=== PATIENT | female | born 1995 | race African-American/Black ===

== ENCOUNTER 2017-01-09 12:19 | Emergency (ER) | payer OTHER ==
[~2017-01-09] VITALS: Ht 157.5 cm; Wt 65.2 kg
[~2017-01-09 12:19] MED LIST: KCL10C PO; METO10 PO; PHEN12.5 PO; PROM25SU8 PO; ZOFR4TAB3 PO
[2017-01-09 12:29] VITALS: BP 126/84; PULSE 124; RESP 20; TEMP 98.3; O2SAT 98
--- NOTE | 2017-01-09 13:08 | PD ---
HPI Chief Complaint: Related Problem Time Seen by Provider: 12:57 Travel History International Travel<30 days: No Contact w/Intl Traveler<30days: No Traveled to known affect area: No History of Present Illness HPI 21-year-old female , LMP 11/13/16, here for evaluation of nausea, vomiting, diarrhea, and abdominal pain. Patient reports having nausea and vomiting for 1 week. She also has been having diarrhea which she describes as loose and watery for the last several days. She has had about 1-2 episodes of vomiting once 2 episodes of loose diarrhea per day. She states that when she has a bowel movement she has lower abdominal cramping. Currently she denies any abdominal pain. No vaginal bleeding or discharge. No urinary symptoms. No history of abdominal surgeries. Patient had similar symptoms about one year ago and was diagnosed with a spontaneous for which she had a D&C. She has not seen an home energy consultant supervisor for this yet, and has not yet had an ultrasound to confirm an IUP. PFSH Past Medical History Anxiety: Yes Cancer: No Cardiovascular Problems: No Developmental Delay: No Diabetes: No Diminished Hearing: No Endocrine: No Gastrointestinal Disorders: No Genitourinary: No Hepatitis: No Hiatal Hernia: No Hypertension: No Immune Disorder: No Medical other: Yes (PT WAS 12 WEEKS AND HAD N/V, NO BLEEDING. MISSED ) Musculoskeletal: No Neurologic: No Psychiatric: No Reproductive: No Respiratory: No Immunizations Current: Yes Thyroid Disease: No Tetanus Vaccination: < 5 Years ?: LMP: 11/13/16 : 2 Para: 1 Dilation and Curettage (D&C): Yes Past Surgical History Body Medical Devices: N/A Joint Replacement: No Other Surgery: No Social History Alcohol Use: No Tobacco Use: No Substance Use: No Allergies-Medications (Allergen,Severity, Reaction): Coded Allergies: Bactrim (Unverified Allergy, Severe, Rash, 01/09/17) Uncoded Allergies: Frozen Fish (Allergy, Severe, Rash, 02/25/14) Fresh Fish is OK Reported Meds & Prescriptions Reported Meds & Active Scripts Active No Active Prescriptions or Reported Medications Review of Systems Except as stated in HPI: all other systems reviewed are Neg Physical Exam Narrative GENERAL: Well-developed, well-nourished, comfortable, no acute distress. SKIN: Focused skin assessment warm/dry. HEAD: Atraumatic. Normocephalic. EYES: Pupils equal and round. No scleral icterus. No injection or drainage. ENT: Mucous membranes pink and moist. CARDIOVASCULAR: Regular rate and rhythm. RESPIRATORY: No accessory muscle use. Clear to auscultation. Breath sounds equal bilaterally. GASTROINTESTINAL: Abdomen soft, non-tender, nondistended. MUSCULOSKELETAL: No obvious deformities. No clubbing. No cyanosis. No edema. NEUROLOGICAL: Awake and alert. No obvious cranial nerve deficits. Motor grossly within normal limits. Normal speech. PSYCHIATRIC: Appropriate mood and affect; insight and judgment normal. Data Data Last Documented VS Vital Signs Date Time Temp Pulse Resp B/P Pulse Ox O2 Delivery O2 Flow Rate FiO2 01/09/17 12:29 98.3 124 20 126/84 98 Orders Urinalysis - C+S If Indicated (01/09/17 12:33) Ed Urine Pregnancytest Poc (01/09/17 12:57) Beta Hcg (Quant/Titer) (01/09/17 13:05) Complete Blood Count With Diff (01/09/17 13:05) Basic Metabolic Panel (Bmp) (01/09/17 13:05) Us Pelvis (Ques Preg/Ectopic) (01/09/17 ) Sodium Chlor 0.9% 1000 Ml Inj (Ns 1000 M (01/09/17 13:15) Ondansetron Inj (Zofran Inj) (01/09/17 13:15) Sodium Chlor 0.9% 1000 Ml Inj (Ns 1000 M (01/09/17 15:00) Labs Laboratory Tests Test 01/09/17 01/09/17 13:10 14:25 White Blood Count 6.9 TH/MM3 Red Blood Count 4.66 MIL/MM3 Hemoglobin 13.6 GM/DL Hematocrit 40.8 % Mean Corpuscular Volume 87.7 FL Mean Corpuscular Hemoglobin 29.1 PG Mean Corpuscular Hemoglobin 33.2 % Concent Red Cell Distribution Width 11.7 % Platelet Count 285 TH/MM3 Mean Platelet Volume 8.4 FL Neutrophils (%) (Auto) 78.0 % Lymphocytes (%) (Auto) 14.1 % Monocytes (%) (Auto) 5.5 % Eosinophils (%) (Auto) 0.1 % Basophils (%) (Auto) 2.3 % Neutrophils # (Auto) 5.3 TH/MM3 Lymphocytes # (Auto) 1.0 TH/MM3 Monocytes # (Auto) 0.4 TH/MM3 Eosinophils # (Auto) 0.0 TH/MM3 Basophils # (Auto) 0.2 TH/MM3 CBC Comment DIFF FINAL Differential Comment Sodium Level 137 MEQ/L Potassium Level 4.0 MEQ/L Chloride Level 103 MEQ/L Carbon Dioxide Level 21.2 MEQ/L Anion Gap 13 MEQ/L Blood Urea Nitrogen 18 MG/DL Creatinine 0.74 MG/DL Estimat Glomerular Filtration 118 ML/MIN Rate Random Glucose 118 MG/DL Calcium Level 9.0 MG/DL Human Chorionic Gonadotropin, 26599 MIU/ML Quant Urine Collection Type CLEAN CATCH Urine Color YELLOW Urine Turbidity CLEAR Urine pH 6.5 Urine Specific [place] 1.030 Urine Protein 100 mg/dL Urine Glucose (UA) NEG mg/dL Urine Ketones 80 OR GREATER mg/dL Urine Occult Blood TRACE Urine Nitrite NEG Urine Bilirubin NEG Urine Leukocyte Esterase NEG Urine RBC 0-3 /hpf Urine WBC 0-2 /hpf Urine Squamous Epithelial 0-5 /hpf Cells Urine Amorphous Sediment FEW Urine Bacteria RARE /hpf Microscopic Urinalysis Comment CULT NOT INDICATED MDM Medical Decision Making Medical Screen Exam Complete: Yes Emergency Medical Condition: Yes Medical Record Reviewed: Yes Differential Diagnosis , ectopic , spontaneous , gastroenteritis, UTI, dehydration Narrative Course Vital signs reviewed. CBC is unremarkable. BMP is unremarkable. Beta hCG is 66,307. UA shows 100 protein, 8 years greater ketones, trace occult blood, rare bacteria , culture not indicated. Pelvic ultrasound: CONCLUSION: 1. Single intrauterine with cardiac activity with a crown-rump length correlating to gestational age of 6 weeks and 5 days. 2. Tiny subchorionic hemorrhage measuring 18 mm. 3. Minimal free fluid adjacent to the right ovary. Patient was made aware of all findings. She is resting comfortably. She is tolerating clear liquids without difficulty. She was given 2 L of normal saline IV here. She is stable for discharge home with outpatient follow-up with an INJECTION SPECIALIST doctor this week. Pelvic rest endorsed. She was informed on when to return to the emergency department patient verbalizes understanding and agreement with plan. Diagnosis Primary Impression: Qualified Code: Z33.1 - , unspecified gestational age Additional Impression: Bacteriuria Referrals: Night Shift 3 days Additional Instructions: Follow-up with an INJECTION SPECIALIST doctor this week. Pelvic rest as discussed. Take antibiotic as prescribed. Stay hydrated with plenty fluids. Return to the emergency department for worsening symptoms or any other concerns. Scripts Ondansetron Odt (Zofran Odt)4 Mg Tab4 Mg SL Q8HR PRN (Nausea/Vomiting) #15 TAB Ref 0 Prov:Burak Ruvalcaba MD 01/09/17 Nitrofurantoin Monohydrate Macrocrystals (Macrobid)100 Mg Oxs515 Mg PO BID 7 Days Ref 0 Prov:Burak Ruvalcaba MD 01/09/17 Disposition: 01 DISCHARGE HOME Condition: Stable Burak Ruvalcaba MD January 09, 2017 13:08
[2017-01-09] MEDS ORDERED: SODIUM CHLOR 0.9% 1000 ML INJ 1,000 ML IV ONE ×2 (13:15→15:00)
[2017-01-09] MEDS ORDERED: ONDANSETRON HCL 4 MG/2 ML VIAL IV PUSH ONE (13:15)
[2017-01-09 13:16] LABS: AUTOMATED NEUTROPHIL # 5.3 TH/MM3 (1.8-7.7); BASOPHIL # 0.2 TH/MM3 (0-0.2); BASOPHIL % 2.3 % (0.0-2.0); EOSINOPHIL % 0.1 % (0.0-4.0); HEMATOCRIT 40.8 % (35.0-46.0); HEMO FLAGS DIFF FINAL; LYMPH % 14.1 % (9.0-44.0); MEAN CELL VOLUME 87.7 FL (80.0-100.0); MEAN CORPUSCULAR HEMOGLOBIN 29.1 PG (27.0-34.0); MEAN CORPUSCULAR HGB CONC 33.2 % (32.0-36.0); MONO % 5.5 % (0.0-8.0); PLATELET COUNT 285 TH/MM3 (150-450); RED BLOOD COUNT 4.66 MIL/MM3 (4.00-5.30); RED CELL DISTRIBUTION WIDTH 11.7 % (11.6-17.2); WHITE BLOOD COUNT 6.9 TH/MM3 (4.0-11.0)
[2017-01-09 13:31] LABS: BICARBONATE 21.2 MEQ/L (21.0-32.0)
[2017-01-09 14:34] LABS: BLOOD, URINE TRACE (NEG); GLUCOSE,URINE NEG (NEG); NITRITE,URINE NEG (NEG); PH, URINE 6.5 (5.0-8.5)
[2017-01-09 14:36] LABS: KETONE, URINE 80 OR GREATER mg/dL (NEG)
[2017-01-09 14:40] LABS: METHOD OF COLLECTION CLEAN CATCH; URINE COLOR YELLOW (YELLW/STRAW)
[2017-01-09 14:41] LABS: BACTERIA, URINE RARE /hpf; COMMENT (UR) CULT NOT INDICATED; COMMENT2 (UR) MUCOUS PRESENT; CULTURE IF INDICATED CULT NOT INDICATED; RBC, URINE 0-3 /hpf (0-3); SQUAMOUS EPITHELIAL CELL URINE 0-5 /hpf (0-5); WBC, URINE 0-2 /hpf (0-5)
--- NOTE | 2017-01-09 16:24 | RADHPO ---
EXAM DATE/TIME: 01/09/2017 15:30 [facility] COMPARISON: No previous studies available for comparison. INDICATIONS : Pelvic pain, Nausea, and vomiting. LAB(S): Beta-hC MEDICAL HISTORY : Previous miscarriage. . Anxiety. SURGICAL HISTORY : Dilation and curettage. ENCOUNTER: Subsequent ACUITY: 1 week PAIN SCORE: 1/10 LOCATION: Bilateral pelvis MEASUREMENTS: UTERUS: 8.7 x 6.8 x 5.1 cm ENDOMETRIAL STRIPE: 18 mm RIGHT OVARY: 4.5 x 3.9 x 3.7 cm LEFT OVARY: 2.8 x 2.4 x 1.8 cm FREE FLUID: Trace fluid adjacent to the right ovary. CROWN RUMP LENGTH: 0.8 cm = 6 WKS 5 DAYS FHR: 132 BPM FINDINGS: There is a single intrauterine with cardiac activity. The crown-rump length correlates with gestational age of 6 weeks and 5 days. heart rate is confirmed at 132 bpm. A yolk sac is prese nt. Gestational sac size correlates to a gestational age of 6 weeks and 5 days. There is a tiny subch orionic hemorrhage within the fundus measuring 18 mm in greatest dimension. Minimal free fluid is not ed adjacent to the right ovary. Complex cyst is noted within the right ovary measuring 4.3 cm. The le ft ovary is unremarkable. CONCLUSION: 1. Single intrauterine with cardiac activity with a crown-rump length correlating to gestat ional age of 6 weeks and 5 days. 2. Tiny subchorionic hemorrhage measuring 18 mm. 3. Minimal free fluid adjacent to the right ovary. Francis Brower MD on January 09, 2017 at 16:17 Board Certified Radiologist. This report was verified electronically.
[2017-01-09] MEDS ORDERED: NITROFURANTOIN MONOHYD MACROCR 100 MG CAP PO ONE (16:30)
[2017-01-09] MEDS ORDERED: MACR100C2 PO (16:32)
[2017-01-09] MEDS ORDERED: ZOFR4TAB3 SL (16:32)
[2017-01-09 16:45] VITALS: BP 114/63
== END 2017-01-09 16:55 | disposition home or self-care (01) ==
LOC: PHED 12:19
DX: O23.41 Unspecified infection of urinary tract in pregnancy, first trimester (principal); O46.8X1 Other antepartum hemorrhage, first trimester; Z3A.01 Less than 8 weeks gestation of pregnancy
CPT/HCPCS: 76700; 80048; 81001; 84702; 84703; 85025; 96361; 96374; 99284; J2405; J7030

== ENCOUNTER 2017-04-25 18:34 | Emergency (ER) | payer OTHER ==
[~2017-04-25] VITALS: Ht 157.5 cm; Wt 63.5 kg
[~2017-04-25 18:34] MED LIST changes: -KCL10C PO; +MACR100C2 PO; -METO10 PO; -PHEN12.5 PO; -PROM25SU8 PO; -ZOFR4TAB3 PO; +ZOFR4TAB3 SL
[2017-04-25 18:37] VITALS: BP 132/87; PULSE 117; RESP 20; TEMP 99; O2SAT 99
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
[2017-04-25] MEDS ORDERED: KETOROLAC TROMETHAMINE 60 MG/2 ML (IM) VIAL IM ONE (19:00)
[2017-04-25] MEDS ORDERED: ORPHENADRINE INJ 60 MG/2 ML AMP IM ONE (19:00)
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
[2017-04-25] MEDS ORDERED: ROBA750T PO (19:46)
[2017-04-25] MEDS ORDERED: IBUP-232 PO (19:46)
[2017-04-25 20:04] VITALS: BP 113/71; PULSE 98; RESP 18; TEMP 98.1; O2SAT 100
== END 2017-04-25 20:14 | disposition home or self-care (01) ==
LOC: NEPD 18:34
DX: S16.1XXA Strain of muscle, fascia and tendon at neck level, initial encounter (principal); V43.52XA Car driver injured in collision with other type car in traffic accident, initial encounter; Y92.414 Local residential or business street as the place of occurrence of the external cause
CPT/HCPCS: 72125; 96372; 99285; J1885; J2360

== ENCOUNTER 2017-12-04 12:49 | Emergency (ER) | payer OTHER ==
[~2017-12-04] VITALS: Ht 157.5 cm; Wt 60.0 kg
[~2017-12-04 12:49] MED LIST changes: +IBUP-232 PO; -MACR100C2 PO; +ROBA750T PO; -ZOFR4TAB3 SL
[2017-12-04 13:18] VITALS: BP 110/70; PULSE 92; RESP 16; TEMP 97.6; O2SAT 100
[2017-12-04] MEDS ORDERED: SODIUM CHLOR 0.9% 1000 ML INJ 1,000 ML IV SCH (17:57)
[2017-12-04] MEDS ORDERED: SODIUM CHLORIDE 0.9% FLUSH 10 ML FLUSH IV FLUSH PRN (18:00)
[2017-12-04] MEDS ORDERED: ONDANSETRON HCL 4 MG/2 ML VIAL IVP ONE (18:00)
--- NOTE | 2017-12-04 18:05 | PD ---
HPI Chief Complaint: GI Complaint Time Seen by Provider: 17:49 Travel History International Travel<30 days: No Contact w/Intl Traveler<30days: No Traveled to known affect area: No History of Present Illness HPI 22-year-old female presents to the emergency department with complaint of diarrhea, nausea, vomiting 3 days. Says she is 8 weeks . Last menstrual period October 10. Says every time she eats she vomits. She cannot keep anything down. Diarrhea is watery. Denies hematemesis, hematochezia. Denies abdominal pain, cramping. Denies vaginal discharge, odor, leaking, drainage, bleeding. Denies dysuria. Denies fevers. Denies lightheadedness, dizziness. Has not taken any medications or trying treatments to alleviate her symptoms. Does not have an property assessment monitor. No primary care provider. Denies significant past medical history. No known allergies. Has no other medical complaints. No other modifying factors or associated signs and symptoms. PFSH Past Medical History Anxiety: Yes Cancer: No Cardiovascular Problems: No Developmental Delay: No Diabetes: No Diminished Hearing: No Endocrine: No Gastrointestinal Disorders: No Genitourinary: No Hepatitis: No Hiatal Hernia: No Hypertension: No Immune Disorder: No Medical other: Yes (PT WAS 12 WEEKS AND HAD N/V, NO BLEEDING. MISSED ) Musculoskeletal: No Neurologic: No Psychiatric: No Reproductive: No Respiratory: No Immunizations Current: Yes Thyroid Disease: No Influenza Vaccination: No ?: LMP: 10/10/17 : 2 Para: 1 Miscarriage: 1 Dilation and Curettage (D&C): Yes Past Surgical History Surgical History: No Previous Surgery Joint Replacement: No Other Surgery: No Social History Alcohol Use: No Tobacco Use: No Substance Use: No Allergies-Medications (Allergen,Severity, Reaction): Coded Allergies: sulfamethoxazole (Unverified Allergy, Severe, Rash, 04/13/17) trimethoprim (Unverified Allergy, Severe, Rash, 04/13/17) Uncoded Allergies: Frozen Fish (Allergy, Severe, Rash, 02/25/14) Fresh Fish is OK Reported Meds & Prescriptions Reported Meds & Active Scripts Active Plus Iron 29-1 mg ( Vit-Iron Carbonyl) 29 Mg Iron-1 Mg Tab 1 Tab PO DAILY Robaxin (Methocarbamol) 750 Mg Tab 750 Mg PO TID PRN Ibuprofen 600 Mg Tab 600 Mg PO TID PRN Review of Systems Except as stated in HPI: all other systems reviewed are Neg Physical Exam Narrative GENERAL: Well-nourished, well-developed black female patient, in no acute distress; afebrile, nontoxic-appearing SKIN: Warm and dry. No rash. HEAD: Atraumatic. Normocephalic. EYES: Pupils equal and round. No scleral icterus. No injection or drainage. ENT: Mucosa pink and moist. NECK: Trachea midline. CARDIOVASCULAR: Regular rate and rhythm. No murmur appreciated. RESPIRATORY: No accessory muscle use. Clear to auscultation. Breath sounds equal bilaterally. GASTROINTESTINAL: Abdomen soft, non-tender, nondistended. Hepatic and splenic margins not palpable. Bowel sounds are active 4 quadrants. Bladder nontender and nondistended. MUSCULOSKELETAL: No obvious deformities. No clubbing. No cyanosis. No edema. BACK: No CVA tenderness NEUROLOGICAL: Awake and alert. Oriented 3. No obvious cranial nerve deficits. Motor grossly within normal limits. Normal speech. Moves all extremities. 5/5 strength to all extremities. PSYCHIATRIC: Appropriate mood and affect; insight and judgment normal. Data Data Last Documented VS Vital Signs Date Time Temp Pulse Resp B/P (MAP) Pulse Ox O2 Delivery O2 Flow Rate FiO2 12/04/17 13:18 97.6 92 16 110/70 (83) 100 Orders Orders Beta Hcg (Quant/Titer) (12/04/17 17:57) Complete Blood Count With Diff (12/04/17 17:57) Urinalysis - C+S If Indicated (12/04/17 17:57) Iv Access Insert/Monitor (12/04/17 17:57) Ondansetron Inj (Zofran Inj) (12/04/17 18:00) Sodium Chlor 0.9% 1000 Ml Inj (Ns 1000 M (12/04/17 17:57) Sodium Chloride 0.9% Flush (Ns Flush) (12/04/17 18:00) Ed Urine Pregnancytest Poc (12/04/17 17:57) Comprehensive Metabolic Panel (12/04/17 18:24) Sodium Chlor 0.9% 1000 Ml Inj (Ns 1000 M (12/04/17 19:30) Potassium Chloride (Kcl) (12/04/17 19:30) Ed Discharge Order (12/04/17 19:32) Labs Laboratory Tests Test 12/04/17 18:24 White Blood Count 5.7 TH/MM3 Red Blood Count 4.22 MIL/MM3 Hemoglobin 12.6 GM/DL Hematocrit 37.3 % Mean Corpuscular Volume 88.2 FL Mean Corpuscular Hemoglobin 29.8 PG Mean Corpuscular Hemoglobin Concent 33.8 % Red Cell Distribution Width 13.3 % Platelet Count 254 TH/MM3 Mean Platelet Volume 7.8 FL Neutrophils (%) (Auto) 83.5 % Lymphocytes (%) (Auto) 11.3 % Monocytes (%) (Auto) 5.2 % Eosinophils (%) (Auto) 0.0 % Basophils (%) (Auto) 0.0 % Neutrophils # (Auto) 4.7 TH/MM3 Lymphocytes # (Auto) 0.6 TH/MM3 Monocytes # (Auto) 0.3 TH/MM3 Eosinophils # (Auto) 0.0 TH/MM3 Basophils # (Auto) 0.0 TH/MM3 CBC Comment DIFF FINAL Differential Comment Urine Color LIGHT-YELLOW Urine Turbidity HAZY Urine pH 6.0 Urine Specific [place] 1.014 Urine Protein TRACE mg/dL Urine Glucose (UA) NEG mg/dL Urine Ketones 150 mg/dL Urine Occult Blood NEG Urine Nitrite NEG Urine Bilirubin NEG Urine Urobilinogen LESS THAN 2.0 MG/DL Urine Leukocyte Esterase NEG Urine RBC 1 /hpf Urine WBC 2 /hpf Urine Squamous Epithelial Cells 2 /hpf Microscopic Urinalysis Comment CULT NOT INDICATED Blood Urea Nitrogen 11 MG/DL Creatinine 0.70 MG/DL Random Glucose 58 MG/DL Total Protein 8.8 GM/DL Albumin 4.0 GM/DL Calcium Level 9.1 MG/DL Alkaline Phosphatase 82 U/L Aspartate Amino Transf (AST/SGOT) 29 U/L Alanine Aminotransferase (ALT/SGPT) 36 U/L Total Bilirubin 0.9 MG/DL Sodium Level 132 MEQ/L Potassium Level 3.4 MEQ/L Chloride Level 99 MEQ/L Carbon Dioxide Level 21.7 MEQ/L Anion Gap 11 MEQ/L Estimat Glomerular Filtration Rate 124 ML/MIN Human Chorionic Gonadotropin, Quant 14424 MIU/ML [facility] Medical Decision Making Medical Screen Exam Complete: Yes Emergency Medical Condition: Yes Medical Record Reviewed: Yes Differential Diagnosis Gastroenteritis, vomiting during , , gastritis, dehydration, UTI Narrative Course 22-year-old female that is approximately 8 weeks with complaint of diarrhea, nausea, vomiting 3 days. Denies abdominal pain, cramping. Denies vaginal discharge, leaking, drainage, bleeding. Denies urinary symptoms. Denies fevers. Patient is afebrile and nontoxic-appearing. Last menstrual period October 10. I discussed the patient with my attending physician, Dr. Dalton, and he agrees with my plan of care. CBC, CMP, urinalysis, UPT, beta hCG, IV, normal saline bolus, Zofran ordered. 1899: Report given to WILNER Christianson at change of shift. See her note for final patient disposition. Scripts Vit-Iron Carbonyl ( Plus Iron 29-1 mg) 29 Mg Iron-1 Mg Tab 1 TAB PO DAILY for Nutritional Supplement, #30 TAB 0 Refills Prov: Tanika Astorga 12/04/17 Jenelle White Dec 04, 2017 18:05
[2017-12-04 18:38] LABS: AUTOMATED NEUTROPHIL # 4.7 TH/MM3 (1.8-7.7); HEMATOCRIT 37.3 % (35.0-46.0); HEMOGLOBIN 12.6 GM/DL (11.6-15.3); LYMPH % 11.3 % (9.0-44.0); LYMPHOCYTE # 0.6 TH/MM3 (1.0-4.8); MEAN CELL VOLUME 88.2 FL (80.0-100.0); MEAN CORPUSCULAR HEMOGLOBIN 29.8 PG (27.0-34.0); MEAN CORPUSCULAR HGB CONC 33.8 % (32.0-36.0); MEAN PLATELET VOLUME 7.8 FL (7.0-11.0); MONO % 5.2 % (0.0-8.0); MONOCYTE # 0.3 TH/MM3 (0-0.9); NEUT % 83.5 % (16.0-70.0); PLATELET COUNT 254 TH/MM3 (150-450); RED BLOOD COUNT 4.22 MIL/MM3 (4.00-5.30); RED CELL DISTRIBUTION WIDTH 13.3 % (11.6-17.2); WHITE BLOOD COUNT 5.7 TH/MM3 (4.0-11.0)
[2017-12-04 18:41] LABS: BILIRUBIN, URINE NEG (NEG); BLOOD, URINE NEG (NEG); GLUCOSE,URINE NEG (NEG); KETONE, URINE 150 mg/dL (NEG); NITRITE,URINE NEG (NEG); SQUAMOUS EPITHELIAL CELL URINE 2 /hpf (0-5); URINE COLOR LIGHT-YELLOW (YELLW/STRAW); URINE LEUKOCYTE ESTERASE NEG (NEG)
[2017-12-04 19:03] LABS: BICARBONATE 21.7 MEQ/L (21.0-32.0); BLOOD UREA NITROGEN 11 MG/DL (7-18); CALCIUM 9.1 MG/DL (8.5-10.1); CHLORIDE 99 MEQ/L (98-107); GLOMERULAR FILTRATION RATE 124 ML/MIN (>89); GLUCOSE,RANDOM 58 MG/DL (74-106); SODIUM (NA) 132 MEQ/L (136-145)
[2017-12-04 19:05] LABS: ALT (GPT) 36 U/L (10-53); AST (GOT) 29 U/L (15-37)
[2017-12-04 19:21] LABS: ALKALINE PHOSPHATASE 82 U/L (45-117); TOTAL BILIRUBIN ADULT 0.9 MG/DL (0.2-1.0); TOTAL PROTEIN 8.8 GM/DL (6.4-8.2)
[2017-12-04] MEDS ORDERED: POTASSIUM CHLORIDE 10 MEQ CONTROLLED RELEASE TAB PO ONE (19:30)
[2017-12-04] MEDS ORDERED: SODIUM CHLOR 0.9% 1000 ML INJ 1,000 ML IV ONE (19:30)
[2017-12-04] MEDS ORDERED: PREN29TA PO (19:31)
--- NOTE | 2017-12-04 19:32 | PD ---
Physical Exam Date Seen by Provider: Dec 04, 2017 Time Seen by Provider: 19:24 Narrative For full history and physical examination please see previous providers note. I assumed care of this patient change of shift. Data Data Last Documented VS Vital Signs Date Time Temp Pulse Resp B/P (MAP) Pulse Ox O2 Delivery O2 Flow Rate FiO2 12/04/17 13:18 97.6 92 16 110/70 (83) 100 Orders Orders Beta Hcg (Quant/Titer) (12/04/17 17:57) Complete Blood Count With Diff (12/04/17 17:57) Urinalysis - C+S If Indicated (12/04/17 17:57) Iv Access Insert/Monitor (12/04/17 17:57) Ondansetron Inj (Zofran Inj) (12/04/17 18:00) Sodium Chlor 0.9% 1000 Ml Inj (Ns 1000 M (12/04/17 17:57) Sodium Chloride 0.9% Flush (Ns Flush) (12/04/17 18:00) Ed Urine Pregnancytest Poc (12/04/17 17:57) Comprehensive Metabolic Panel (12/04/17 18:24) Ns (Bolus) Inj (12/04/17 19:30) Labs Laboratory Tests Test 12/04/17 18:24 White Blood Count 5.7 TH/MM3 Red Blood Count 4.22 MIL/MM3 Hemoglobin 12.6 GM/DL Hematocrit 37.3 % Mean Corpuscular Volume 88.2 FL Mean Corpuscular Hemoglobin 29.8 PG Mean Corpuscular Hemoglobin Concent 33.8 % Red Cell Distribution Width 13.3 % Platelet Count 254 TH/MM3 Mean Platelet Volume 7.8 FL Neutrophils (%) (Auto) 83.5 % Lymphocytes (%) (Auto) 11.3 % Monocytes (%) (Auto) 5.2 % Eosinophils (%) (Auto) 0.0 % Basophils (%) (Auto) 0.0 % Neutrophils # (Auto) 4.7 TH/MM3 Lymphocytes # (Auto) 0.6 TH/MM3 Monocytes # (Auto) 0.3 TH/MM3 Eosinophils # (Auto) 0.0 TH/MM3 Basophils # (Auto) 0.0 TH/MM3 CBC Comment DIFF FINAL Differential Comment Urine Color LIGHT-YELLOW Urine Turbidity HAZY Urine pH 6.0 Urine Specific [place] 1.014 Urine Protein TRACE mg/dL Urine Glucose (UA) NEG mg/dL Urine Ketones 150 mg/dL Urine Occult Blood NEG Urine Nitrite NEG Urine Bilirubin NEG Urine Urobilinogen LESS THAN 2.0 MG/DL Urine Leukocyte Esterase NEG Urine RBC 1 /hpf Urine WBC 2 /hpf Urine Squamous Epithelial Cells 2 /hpf Microscopic Urinalysis Comment CULT NOT INDICATED Blood Urea Nitrogen 11 MG/DL Creatinine 0.70 MG/DL Random Glucose 58 MG/DL Total Protein 8.8 GM/DL Albumin 4.0 GM/DL Calcium Level 9.1 MG/DL Alkaline Phosphatase 82 U/L Aspartate Amino Transf (AST/SGOT) 29 U/L Alanine Aminotransferase (ALT/SGPT) 36 U/L Total Bilirubin 0.9 MG/DL Sodium Level 132 MEQ/L Potassium Level 3.4 MEQ/L Chloride Level 99 MEQ/L Carbon Dioxide Level 21.7 MEQ/L Anion Gap 11 MEQ/L Estimat Glomerular Filtration Rate 124 ML/MIN Human Chorionic Gonadotropin, Quant [id number] MIU/ML [facility] Medical Record Reviewed: Yes Supervised Visit with RASHEED: No Interpretation(s) Laboratory Tests Test 12/04/17 18:24 White Blood Count 5.7 TH/MM3 Red Blood Count 4.22 MIL/MM3 Hemoglobin 12.6 GM/DL Hematocrit 37.3 % Mean Corpuscular Volume 88.2 FL Mean Corpuscular Hemoglobin 29.8 PG Mean Corpuscular Hemoglobin Concent 33.8 % Red Cell Distribution Width 13.3 % Platelet Count 254 TH/MM3 Mean Platelet Volume 7.8 FL Neutrophils (%) (Auto) 83.5 % Lymphocytes (%) (Auto) 11.3 % Monocytes (%) (Auto) 5.2 % Eosinophils (%) (Auto) 0.0 % Basophils (%) (Auto) 0.0 % Neutrophils # (Auto) 4.7 TH/MM3 Lymphocytes # (Auto) 0.6 TH/MM3 Monocytes # (Auto) 0.3 TH/MM3 Eosinophils # (Auto) 0.0 TH/MM3 Basophils # (Auto) 0.0 TH/MM3 CBC Comment DIFF FINAL Differential Comment Urine Color LIGHT-YELLOW Urine Turbidity HAZY Urine pH 6.0 Urine Specific [place] 1.014 Urine Protein TRACE mg/dL Urine Glucose (UA) NEG mg/dL Urine Ketones 150 mg/dL Urine Occult Blood NEG Urine Nitrite NEG Urine Bilirubin NEG Urine Urobilinogen LESS THAN 2.0 MG/DL Urine Leukocyte Esterase NEG Urine RBC 1 /hpf Urine WBC 2 /hpf Urine Squamous Epithelial Cells 2 /hpf Microscopic Urinalysis Comment CULT NOT INDICATED Blood Urea Nitrogen 11 MG/DL Creatinine 0.70 MG/DL Random Glucose 58 MG/DL Total Protein 8.8 GM/DL Albumin 4.0 GM/DL Calcium Level 9.1 MG/DL Alkaline Phosphatase 82 U/L Aspartate Amino Transf (AST/SGOT) 29 U/L Alanine Aminotransferase (ALT/SGPT) 36 U/L Total Bilirubin 0.9 MG/DL Sodium Level 132 MEQ/L Potassium Level 3.4 MEQ/L Chloride Level 99 MEQ/L Carbon Dioxide Level 21.7 MEQ/L Anion Gap 11 MEQ/L Estimat Glomerular Filtration Rate 124 ML/MIN Human Chorionic Gonadotropin, Quant [id number] MIU/ML Vital Signs Date Time Temp Pulse Resp B/P (MAP) Pulse Ox O2 Delivery O2 Flow Rate FiO2 12/04/17 13:18 97.6 92 16 110/70 (83) 100 Narrative Course Patient is 22-year-old female that presented to emergency department for evaluation of nausea, vomiting, diarrhea for the last 3 days. She is approximately 8 weeks per her report. She has no related complaints, no vaginal bleeding, no cramping, no discharge. CBC reviewed, no acute findings. Chemistry with a sodium of 132, potassium 3.4. HCG 35,950. Urinalysis is unremarkable. Patient is received a total of 2 L of IV fluids and Zofran. Potassium will be replaced orally. Patient is encouraged to establish care with an [employer]. She is encouraged to maintain adequate fluid intake. She was further encouraged to return to emergency department for any new or worsening symptoms. Patient verbalized understanding of discharge instructions. Patient stable for discharge. Diagnosis Primary Impression: Nausea and vomiting during Referrals: [employer] 1 week Patient Instructions: General Instructions, Nausea and Vomiting in ( ED) Additional Instruction: Maintain adequate fluid intake Eat a bland, easy to digest diet, increasing as tolerated Return to emergency department for any new or worsening symptoms Establish care with an potato chip maker for routine care Med/Other Pt SpecificInfo: Prescription(s) given Scripts Vit-Iron Carbonyl ( Plus Iron 29-1 mg) 29 Mg Iron-1 Mg Tab 1 TAB PO DAILY for Nutritional Supplement, #30 TAB 0 Refills Prov: Tanika Astorga 12/04/17 Disposition: 01 DISCHARGE HOME Condition: Stable Tanika Astorga Dec 04, 2017 19:32
== END 2017-12-04 20:27 | disposition home or self-care (01) ==
LOC: NEPD 12:49
DX: O99.89 Other specified diseases and conditions complicating pregnancy, childbirth and the puerperium (principal); R11.2 Nausea with vomiting, unspecified; R19.7 Diarrhea, unspecified; O99.341 Other mental disorders complicating pregnancy, first trimester; F41.9 Anxiety disorder, unspecified; Z3A.08 8 weeks gestation of pregnancy
CPT/HCPCS: 80053; 81001; 84702; 84703; 85025; 96361; 96374; 99284; J2405; J7030

== ENCOUNTER 2017-12-12 09:54 | Emergency (ER) | payer OTHER ==
[~2017-12-12] VITALS: Ht 157.5 cm; Wt 66.0 kg
[~2017-12-12 09:54] MED LIST changes: +PREN29TA PO
[2017-12-12 09:57] VITALS: BP 127/66; PULSE 74; RESP 16; TEMP 97.5; O2SAT 99
[2017-12-12] MEDS ORDERED: PROM25TA10 PO (10:24)
--- NOTE | 2017-12-12 10:34 | PD ---
HPI Chief Complaint: Related Problem Time Seen by Provider: 10:10 Travel History International Travel<30 days: No Contact w/Intl Traveler<30days: No Traveled to known affect area: No History of Present Illness HPI The patient was seen and examined in the presence of the nurse. Patient reports that she is 9 weeks . She is having nausea and vomiting. No diarrhea or fever or pelvic pain or vaginal bleeding or discharge. Symptom severity is mild. No alleviating factors. She was seen here a week ago for the same thing. PFSH Past Medical History Anxiety: Yes Cancer: No Cardiovascular Problems: No Developmental Delay: No Diabetes: No Diminished Hearing: No Endocrine: No Gastrointestinal Disorders: No Genitourinary: No Hepatitis: No Hiatal Hernia: No Hypertension: No Immune Disorder: No Musculoskeletal: No Neurologic: No Psychiatric: No Reproductive: No Respiratory: No Immunizations Current: Yes Thyroid Disease: No Influenza Vaccination: No ?: LMP: 10/10/17 : 2 Para: 1 Miscarriage: 1 Dilation and Curettage (D&C): Yes Past Surgical History Joint Replacement: No Other Surgery: No Social History Alcohol Use: No Tobacco Use: No Substance Use: No Allergies-Medications (Allergen,Severity, Reaction): Coded Allergies: sulfamethoxazole (Unverified Allergy, Severe, Rash, 12/12/17) trimethoprim (Unverified Allergy, Severe, Rash, 12/12/17) Uncoded Allergies: Frozen Fish (Allergy, Severe, Rash, 02/25/14) Fresh Fish is OK Reported Meds & Prescriptions Reported Meds & Active Scripts Active Phenergan (Promethazine HCl) 25 Mg Tablet 25 Mg PO Q6H PRN Review of Systems General / Constitutional: No: Fever Eyes: No: Visual changes HENT: No: Headaches Cardiovascular: No: Chest Pain or Discomfort Respiratory: No: Shortness of Breath Gastrointestinal: Positive: Nausea, Vomiting, No: Abdominal Pain Genitourinary: No: Dysuria Musculoskeletal: No: Pain Skin: No Rash Neurologic: No: Weakness Psychiatric: No: Depression Endocrine: No: Polydipsia Hematologic/Lymphatic: No: Easy Bruising Physical Exam Narrative GENERAL: Well-nourished, well-developed patient in no apparent distress. SKIN: Focused skin assessment reveals no rash and nodules. Skin is Warm and dry. HEAD: Atraumatic. Normocephalic. EYES: Pupils equal and round. No scleral icterus. No injection or drainage. ENT: No nasal bleeding or discharge. Mucous membranes pink and moist. NECK: Trachea midline. No JVD. CARDIOVASCULAR: Regular rate and rhythm. No murmur appreciated. RESPIRATORY: No accessory muscle use. Clear to auscultation. Breath sounds equal bilaterally. GASTROINTESTINAL: Abdomen soft, non-tender, nondistended. Hepatic and splenic margins not palpable. MUSCULOSKELETAL: No obvious deformities. No clubbing. No cyanosis. No edema. NEUROLOGICAL: Awake and alert. No obvious cranial nerve deficits. Motor grossly within normal limits. Normal speech. PSYCHIATRIC: Appropriate mood and affect; insight and judgment normal. Data Data Last Documented VS Vital Signs Date Time Temp Pulse Resp B/P (MAP) Pulse Ox O2 Delivery O2 Flow Rate FiO2 12/12/17 09:57 97.5 74 16 127/66 (86) 99 MDM Medical Decision Making Medical Screen Exam Complete: Yes Emergency Medical Condition: Yes Medical Record Reviewed: Yes Differential Diagnosis Hyperemesis of , colitis, gastroenteritis Narrative Course I have reviewed the patient's electronic medical record. Reviewed her visit from a week ago for the same thing Recommend follow-up I have recommended clear liquids for 24 hours, then gradually advance as tolerated. She is euvolemic with normal exam Prescribe some Phenergan We discussed the category C nature of this medication and potential side effects and she is willing to accept risks to fetus and wants the medicine Diagnosis Primary Impression: Nausea and vomiting during prior to 22 weeks gestation Additional Instructions: I have recommended clear liquids for 24 hours, then gradually advance as tolerated. The patient was advised to follow up with their physician and return if they worsen. Med/Other Pt SpecificInfo: Prescription(s) given Scripts Promethazine (Phenergan) 25 Mg Tablet 25 MG PO Q6H Y for NAUSEA OR VOMITING, #15 TAB 0 Refills Prov: Nick Early MD 12/12/17 Disposition: 01 DISCHARGE HOME Condition: Stable Nick Early MD Dec 12, 2017 10:34
== END 2017-12-12 10:48 | disposition home or self-care (01) ==
LOC: PHED 09:54
DX: O21.9 Vomiting of pregnancy, unspecified (principal); O99.341 Other mental disorders complicating pregnancy, first trimester; F41.9 Anxiety disorder, unspecified; Z3A.09 9 weeks gestation of pregnancy; Z88.2 Allergy status to sulfonamides; Z88.8 Allergy status to other drugs, medicaments and biological substances
CPT/HCPCS: 99283